=== PATIENT | female | born 1965 | race Caucasian/White ===

== ENCOUNTER 2017-02-24 15:46 | Emergency (ER) | payer BC ==
--- NOTE | 2017-02-24 16:37 | UC ---
Shoulder Pain HPI - HPI Summary HPI Summary: 51 year old female presents with right shoulder pain after a fall. - History of Current Complaint Stated Complaint: RT SHOULDER INJ Time Seen by Provider: 02/24/17 16:35 Hx Obtained From: Patient Onset/Duration: Sudden Onset Timing: Constant Severity Initially: Moderate Severity Currently: Moderate Pain Scale Used: 0-10 Numeric - 7 Character: Sharp - Allergies/Home Medications Allergies/Adverse Reactions: Allergies Allergy/AdvReac Type Severity Reaction Status Date / Time No Known Allergies Allergy Verified 02/24/17 17:11 Home Medications: Home Medications Nifedipine [Nifedical Xl] 1 tab DAILY PRN 02/24/17 [History Confirmed 02/24/17] PMH/Surg Hx/FS Hx/Imm Hx Previously Healthy: Yes - Surgical History Surgical History: None - Family History Known Family History: Positive: None - Social History Alcohol Use: None Review of Systems Constitutional: Negative Skin: Negative Eyes: Negative ENT: Negative Respiratory: Negative Cardiovascular: Negative Gastrointestinal: Negative Genitourinary: Negative Motor: Negative Neurovascular: Negative Musculoskeletal: Other: - right shoulder pain Neurological: Negative Psychological: Negative All Other Systems Reviewed And Are Negative: Yes Physical Exam Triage Information Reviewed: Yes Appearance: Well-Appearing Vital Signs Reviewed: Yes Eye Exam: Normal ENT Exam: Normal Dental Exam: Normal Neck exam: Normal Neck: Positive: 1 Respiratory Exam: Normal Cardiovascular Exam: Normal Abdominal Exam: Normal Musculoskeletal: Positive: Other: - right shoulder pain/swelling Neurological Exam: Normal Psychological Exam: Normal Skin Exam: Normal Shoulder Course/Dx - Differential Dx/Diagnosis Provider Diagnoses: right humeral fx Discharge - Discharge Plan Condition: Stable Disposition: HOME Patient Education Materials: Shoulder Sprain (ED), Proximal Humerus Fracture ( ED) Referrals: Phoebe Fierro MD [Primary Care Provider] - Javier Oconnor MD [Medical Doctor] -
[2017-02-24 17:15] VITALS: BP 116/69
[2017-02-24] MEDS ORDERED: Acetaminop/Codeine 30 MG TAB* 1 TAB (300 MG/30 MG) PO ONE (17:34)
[2017-02-24] MEDS ORDERED: HYDROcodone/ACETAMIN 5-325 MG* 1 TAB PO ONE (17:35)
--- NOTE | 2017-02-24 17:51 | RAD ---
INDICATION: Right shoulder injury. TECHNIQUE: 2 views of the right shoulder were obtained. FINDINGS: There is a slightly comminuted grossly nondisplaced fracture of the greater tubercle of the humerus. Joint spaces appear maintained. IMPRESSION: SLIGHTLY COMMINUTED NONDISPLACED FRACTURE OF THE GREATER TUBERCLE OF THE HUMERUS.
== END 2017-02-24 18:47 | disposition home or self-care (01) ==
LOC: UCCORT 15:46
DX: S42.301A Unspecified fracture of shaft of humerus, right arm, initial encounter for closed fracture (principal); W19.XXXA Unspecified fall, initial encounter; Y92.9 Unspecified place or not applicable
CPT/HCPCS: 99212; G0463